=== PATIENT | male | born 1975 | race Caucasian/White ===

== ENCOUNTER 2019-03-11 12:57 | Emergency (ER) | payer SELFPAY ==
[~2019-03-11] VITALS: Ht 188 cm; Wt 108.9 kg
[2019-03-11 13:52] VITALS: Ht 188 cm; Wt 108.9 kg
[2019-03-11 15:07] LABS: BASOPHIL % 0.1 % (0-2); RED CELL DISTRIBUTION WIDTH 14.1 % (11.5-14.5)
[2019-03-11 15:18] LABS: CALCIUM 8.1 mg/dL (8.5-10.1); CARBON DIOXIDE 20.2 mmol/L (21-32); CHLORIDE SERUM 91 mmol/L (98-107); CREATININE SERUM 1.3 mg/dL (0.7-1.3); GFR1 > 60 mL/min; GLUCOSE SERUM 137 mg/dL (74-106); SODIUM SERUM 137 mmol/L (136-145)
[2019-03-11 15:23] LABS: ALBUMIN 3.8 g/dL (3.4-5.0); ALKALINE PHOSPHATASE 73 U/L (46-116); ALT/SGPT 90 U/L (16-63); AST/SGOT 95 U/L (15-37); BILIRUBIN TOTAL 1.1 mg/dL (0.20-1.00); LIPASE 273 IU/L (73-393); PLATELET COUNT 99 x10^3mcL (130-400); TOTAL PROTEIN, SERUM 7.9 g/dL (6.4-8.2)
[2019-03-11 19:30] VITALS: BP 132/73
== END 2019-03-11 20:30 | disposition home or self-care (01) ==
LOC: ED 12:57
PROVIDERS: Specialist
DX: F10.129 Alcohol abuse with intoxication, unspecified (principal); R11.0 Nausea; I10 Essential (primary) hypertension; Z88.0 Allergy status to penicillin; Y90.8 Blood alcohol level of 240 mg/100 ml or more
CPT/HCPCS: G0480; J2060; J2405; J7030